=== PATIENT | male | born 1940 | race Caucasian/White ===

== ENCOUNTER 2017-08-22 13:33 | Emergency (ER) | payer MEDICARE, OTHER ==
--- NOTE | 2017-08-22 13:46 | EDM.PDOC ---
ED HPI GENERAL MEDICAL PROBLEM - General Stated Complaint: FALL, HIP PAIN Time Seen by Provider: 08/22/17 13:44 Source of Information: Reports: Patient History Limitations: Reports: No Limitations - History of Present Illness INITIAL COMMENTS - FREE TEXT/NARRATIVE: HISTORY and physical: Patient was standing at the nurses station and fell over now having pain to the left trochanter area and unable to walk History of Present Illness: []Patient did bump his head on the left crown. He is on blood thinners Has full memory of the incident He has a brace on his right lower leg/foot Has a catheter with leg bag on the left Review of Systems: As per history of present illness and below otherwise all systems reviewed and negative. Past medical history: As per history of present illness and as reviewed below otherwise noncontributory. Surgical history: As per history of present illness and as reviewed below otherwise noncontributory. Social history: No reported history of drug or alcohol abuse. Family history: As per history of present illness and as reviewed below otherwise noncontributory. Physical exam: Alert and oriented gentleman answering questions appropriately is able to stand on his good and injured leg. HEENT: Atraumatic, normocehpalic, pupils reactive, negative for conjunctival pallor or scleral icterus, mucous membranes moist, throat clear, neck supple, nontender, trachea midline. Lungs: Clear to auscultation, breath sounds equal bilaterally, chest non tender. Heart: S1S2, regular, negative for clicks, rubs, or JVD. Abdomen: Soft, nondistended, nontender. Negative for masses or hepatossplenmegaly. Negative for costovertebral tenderness. Pelvis: Stable nontender. Genitourinary: Deferred. Rectal: Deferred Extremities: Atraumatic, negative for cords or calf pain. Pain noted to the left trochanter Neurovascular unremarkable. Neuro: Awake, alert, oriented. Cranial nerves II through XII unremarkable. Cerebellum unremarkable. Motor and sensory unremarkable throughout. Exam nonfocal. Discussed with the patient that no fractures were noted on his x-rays Diagnostics: [CT head Left hip and pelvis] Therapeutics: [] Impression: [Contusions ]Plan: [Discharged to home with Tylenol for discomfort up with your primary care provider next week] Definitive disposition and diagnosis as appropriate pending reevaluation and review of above. Onset: Today, Sudden Location: Reports: Lower Extremity, Left Left Hip Pain Score (Numeric/FACES): 5 - Related Data Allergies Allergy/AdvReac Type Severity Reaction Status Date / Time cephalexin monohydrate Allergy Cannot Verified 08/22/17 13:48 [From Keflex] Remember coffee (Coffea arabica) Allergy Cannot Verified 08/22/17 13:48 [coffee] Remember Penicillins Allergy Cannot Verified 08/22/17 13:48 Remember green peppergs Allergy Nausea and Uncoded 08/22/17 13:48 Vomiting tobacco Allergy Nausea Uncoded 08/22/17 13:48 Home Meds: Home Meds Insulin Detemir [Levemir Flexpen] 10 units SQ BEDTIME 11/27/13 [History] Acetaminophen [Tylenol Extra Strength] 500 mg PO Q6H PRN 01/19/16 [History] Glucagon,Human Recombinant [Glucagon Emergency Kit] 1 mg IM ASDIRECTED PRN 01/18 [History] Metoclopramide [Reglan] 10 mg PO TIDMEALS 01/19/16 [History] Aspirin 81 mg PO BRK 01/24/16 [History] Atropine 1% [Isopto Atropine 1% Ophth Soln] 1 drop OP QID 01/24/16 [History] Brimonidine Tartrate [Alphagan P] 1 drop EYEBOTH TID 01/24/16 [History] Clopidogrel [Plavix] 75 mg PO DAILY 01/24/16 [History] Dorzolamide [Trusopt 2% Ophth Soln] 1 drop EYERT TID 01/24/16 [History] Furosemide [Lasix] 80 mg PO BIDD 01/24/16 [History] Insulin Lispro [Humalog Kwikpen U-100] 0 unit SUBCUT TIDMEALS 01/24/16 [History] Isosorbide Mononitrate [Imdur] 30 mg PO DAILY 01/24/16 [History] Latanoprost [Xalatan 0.005% Ophth Soln] 2.5 ml EYERT BEDTIME 01/24/16 [History] Nitroglycerin [Nitrostat] 0.4 mg SL Q5M 01/24/16 [History] Pantoprazole Sodium 40 mg PO DAILY 01/24/16 [History] Polyethylene Glycol 3350 [MiraLAX] 17 gm PO DAILY 01/24/16 [History] Vitamin B Complex 1 each PO DAILY 01/24/16 [History] Warfarin [Coumadin] 2 mg PO BEDTIME 01/24/16 [History] prednisoLONE Acetate [Pred Forte 1% Ophth Susp] 1 drop EYEBOTH TID 01/24/16 [ History] Past Medical History HEENT History: Reports: Macular Degeneration, Retinal Detachment, Other (See Below) Other HEENT History: left vetreous hemorrhage Cardiovascular History: Reports: Bypass, Hypertension, [place] Gastrointestinal History: Reports: GERD, Other (See Below) Other Gastrointestinal History: gastroparesis Genitourinary History: Reports: Pyelonephritis, Renal Disease, Urinary Incontinence Musculoskeletal History: Reports: Back Pain, Chronic, Other (See Below) Other Musculoskeletal History: weakness Endocrine/Metabolic History: Reports: Diabetes, Type I Hematologic History: Reports: Anticoagulation Therapy - Infectious Disease History Infectious Disease History: Reports: Chicken Pox, Measles, Mumps - Past Surgical History Cardiovascular Surgical History: Reports: Other (See Below) Social & Family History - Family History Family Medical History: Noncontributory - Tobacco Use Smoking Status *Q: Never Smoker Second Hand Smoke Exposure: No - Alcohol Use Days Per Week of Alcohol Use: 0 - Recreational Drug Use Recreational Drug Use: No Drug Use in Last 12 Months: No ED ROS GENERAL - Review of Systems Review Of Systems: ROS reveals no pertinent complaints other than HPI. ED EXAM, GENERAL - Physical Exam Exam: See Below (see dictation) Course - Vital Signs Last Recorded V/S: Last Vital Signs Temp 36.7 C 08/22/17 13:45 Pulse 87 08/22/17 13:45 Resp 20 08/22/17 13:45 BP 112/49 L 08/22/17 13:45 Pulse Ox 97 08/22/17 13:45 - Orders/Labs/Meds Orders: Active Orders 24 hr Category Date Time Status Head wo Cont [CT] Stat Exams 08/22/17 13:43 Taken Hip Min 2V or 3V w Pelvis Lt [CR] Stat Exams 08/22/17 13:43 Taken Departure - Departure Time of Disposition: 14:45 Disposition: Home, Self-Care 01 Condition: Good Clinical Impression: Contusion of hip - Discharge Information Instructions: Hip Pain Referrals: Vargas Kaur MD [Primary Care Provider] - Additional Instructions: The following information is given to patients seen in the emergency department who are being discharged to home. This information is to outline your options for follow-up care. We provide all patients seen in our emergency department with a follow-up referral. The need for follow-up, as well as the timing and circumstances, are variable depending upon the specifics of your emergency department visit. If you don't have a primary care physician on staff, we will provide you with a referral. We always advise you to contact your personal physician following an emergency department visit to inform them of the circumstance of the visit and for follow-up with them and/or the need for any referrals to a consulting specialist. The emergency department will also refer you to a specialist when appropriate. This referral assures that you have the opportunity for followup care with a specialist. All of these measure are taken in an effort to provide you with optimal care, which includes your followup. Under all circumstances we always encourage you to contact your private physician who remains a resource for coordinating your care. When calling for followup care, please make the office aware that this follow-up is from your recent emergency room visit. If for any reason you are refused follow-up, please contact the [facility] emergency department at and asked to speak to the emergency department charge nurse. No fractures were noted - My Orders Last 24 Hours: My Active Orders 08/22/17 13:43 Head wo Cont [CT] Stat Hip Min 2V or 3V w Pelvis Lt [CR] Stat - Assessment/Plan Last 24 Hours: My Active Orders 08/22/17 13:43 Head wo Cont [CT] Stat Hip Min 2V or 3V w Pelvis Lt [CR] Stat
[2017-08-22 13:48] VITALS: BP 112/49
--- NOTE | 2017-08-23 19:05 | CT ---
EXAM DATE: 08/22/17 PATIENT'S AGE: 77 Patient: [facility] Facility: [place], [place] Site . Site : 1940 Study: CT Head [id number] 2:02:26 PM Ordering Physician: Doctor Valadez Final Report: HISTORY: Fall, hit head. TECHNIQUE: The head was obtained in the axial plane and 3 mm intervals without IV contrast. Reconstructed bone windows obtained as well as sagittal and coronal reconstructions. FINDINGS: There is mild mucosal thickening in the inferior aspect of the right maxillary sinus. The remainder of the paranasal sinuses and mastoid air cells are well aerated. The calvarium is intact. Calcification is seen within the left vertebral artery and the carotid siphons. The ventricles new sulci are enlarged. Mild periventricular and subcortical white matter hypodensity is present. No intra-axial mass, edema or midline shift is identified. No extra- axial fluid collections are seen. Brady-white differentiation is preserved. IMPRESSION: 1. Atrophy. 2. Mild periventricular and subcortical white matter hypodensity most consistent with small vessel ischemic change. 3. No acute intracranial pathology or bleed. Dictated by Jennifer Mosher MD @ 08/22/2017 2:37:24 PM Dictated by: Jennifer Mosher MD @ 08/22/2017 14:37:29 (Electronic Signature) Report Signed by Proxy. [facility]ITALS[facility]
--- NOTE | 2017-08-23 19:06 | CR ---
EXAM DATE: 08/22/17 PATIENT'S AGE: 77 Patient: [facility] Facility: [place], [place] Site . Site : 1940 Study: XRay Hip Left [id number] 2:10:53 PM Ordering Physician: Doctor Valadez Final Report: HISTORY: Low left hip pain after falling injury. FINDINGS: Three views of the pelvis left hip are provided. Diffuse osteopenia is noted. There are no findings for left hip fracture. There is a previous healed fracture of the right proximal femur internally fixated with a screw and plate combination. No pelvic bone fracture is noted. Mild osteoarthritic change is noted of both hip joints. Dictated by Rogelio Knott MD @ Aug 22 2017 2:31PM (Electronic Signature) Report Signed by Proxy. BRAULIO
== END 2017-08-22 15:10 | disposition home or self-care (01) ==
LOC: MW.ED 13:33
DX: S70.02XA Contusion of left hip, initial encounter (principal); I10 Essential (primary) hypertension; E10.9 Type 1 diabetes mellitus without complications; Z88.1 Allergy status to other antibiotic agents; Z88.0 Allergy status to penicillin; Z79.01 Long term (current) use of anticoagulants; Z79.82 Long term (current) use of aspirin; Z79.4 Long term (current) use of insulin; Z79.899 Other long term (current) drug therapy; W22.8XXA Striking against or struck by other objects, initial encounter
CPT/HCPCS: 70450; 70450-26; 73502-26-LT; 73502-LT; 99284; 99284-25

== ENCOUNTER 2017-12-08 07:10 | Emergency (ER) | payer MEDICARE, OTHER ==
[2017-12-08] MEDS ORDERED: Sodium Chloride 0.9% 2.5 ML Syringe FLUSH PRN (07:35)
[2017-12-08] MEDS ORDERED: Sodium Chloride 0.9% 10 ML Syringe FLUSH PRN (07:35)
[2017-12-08] MEDS ORDERED: Ondansetron 4 MG/2 ML SDV IVPUSH ONE (07:35)
[2017-12-08] MEDS ORDERED: Sodium Chloride 0.9% 1,000 ML IV ONE (07:35)
[2017-12-08] MEDS ORDERED: Metoclopramide 10 MG/2 ML SDV IV ONE (07:37)
--- NOTE | 2017-12-08 07:44 | EDM.PDOC ---
ED HPI GENERAL MEDICAL PROBLEM - General Chief Complaint: Gastrointestinal Problem Stated Complaint: THROWING UP Time Seen by Provider: 12/08/17 07:17 Source of Information: Reports: Patient History Limitations: Reports: No Limitations - History of Present Illness INITIAL COMMENTS - FREE TEXT/NARRATIVE: History of present illness: []Patient's had 2 days of upper abdominal pain with nausea and vomiting. Patient is an insulin-dependent diabetic and also on dialysis. 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 Patient's next dialysis is due this afternoon. Patient denies any chest pain, shortness of breath, cough or recent illnesses. Review of systems: As per history of present illness and below otherwise all systems reviewed and negative. Past medical history: As per history of present illness and as reviewed below otherwise noncontributory. Surgical history: As per history of present illness and as reviewed below otherwise noncontributory. Social history: No reported history of drug or alcohol abuse. Family history: As per history of present illness and as reviewed below otherwise noncontributory. Physical exam: General: Well developed, well nourished in NAD HEENT: Atraumatic, normocephalic, pupils reactive, negative for conjunctival pallor or scleral icterus, mucous membranes moist, throat clear, neck supple, nontender, trachea midline. Lungs: Clear to auscultation, breath sounds equal bilaterally, chest nontender. Heart: S1S2, regular, negative for clicks, rubs, or JVD. Abdomen: Soft, nondistended, diffuse mild tenderness without rebound or guarding with moderate tenderness in the right lower quadrant without rebound or guarding. Negative for masses or hepatosplenomegaly. Negative for costovertebral tenderness. Pelvis: Stable nontender. Genitourinary: Deferred. Patient does have indwelling Garcia catheter with a leg bag Rectal: Guaiac negative Extremities: Atraumatic, negative for cords or calf pain. Neurovascular unremarkable. Neuro: Awake, alert, oriented. Cranial nerves II through XII unremarkable. Cerebellum unremarkable. Motor and sensory unremarkable throughout. Exam nonfocal. Diagnostics: []CBC with white count 13,000 without a shift H&H is 11 and 36, glucose is 450, INR is 1.1, lactate is 2.1. Potassium is 5.4. Therapeutics: []Patient is given maintenance fluids, 10 units of regular insulin and started on a Protonix bolus and drip Impression: []Upper GI bleed, stable, chronic renal disease on dialysis, insulin dependent diabetes with uncontrolled glucose Plan: []Initially [facility] [place] except for this patient, however, patient preferred to be transferred to [facility]. Dr. Hubbard, on the hospitalist service accepts the patient at 8:42 AM. Patient has remained stable while in the ED. Definitive disposition and diagnosis as appropriate pending reevaluation and review of above. abdominal Pain Score (Numeric/FACES): 3 - Related Data Allergies Allergy/AdvReac Type Severity Reaction Status Date / Time cephalexin monohydrate Allergy Cannot Verified 12/08/17 07:23 [From Keflex] Remember coffee (Coffea arabica) Allergy Cannot Verified 12/08/17 07:23 [coffee] Remember Penicillins Allergy Cannot Verified 12/08/17 07:23 Remember green peppergs Allergy Nausea and Uncoded 12/08/17 07:23 Vomiting tobacco Allergy Nausea Uncoded 12/08/17 07:23 Home Meds: Home Meds Insulin Detemir [Levemir Flexpen] 10 units SQ BEDTIME 11/27/13 [History] Acetaminophen [Tylenol Extra Strength] 500 mg PO Q6H PRN 01/19/16 [History] Glucagon,Human Recombinant [Glucagon Emergency Kit] 1 mg IM ASDIRECTED PRN 01/18 [History] Metoclopramide [Reglan] 10 mg PO TIDMEALS 01/19/16 [History] Aspirin 81 mg PO BRK 01/24/16 [History] Atropine 1% [Isopto Atropine 1% Ophth Soln] 1 drop OP QID 01/24/16 [History] Brimonidine Tartrate [Alphagan P] 1 drop EYEBOTH TID 01/24/16 [History] Clopidogrel [Plavix] 75 mg PO DAILY 01/24/16 [History] Dorzolamide [Trusopt 2% Ophth Soln] 1 drop EYERT TID 01/24/16 [History] Furosemide [Lasix] 80 mg PO BIDD 01/24/16 [History] Insulin Lispro [Humalog Kwikpen U-100] 0 unit SUBCUT TIDMEALS 01/24/16 [History] Isosorbide Mononitrate [Imdur] 30 mg PO DAILY 01/24/16 [History] Latanoprost [Xalatan 0.005% Ophth Soln] 2.5 ml EYERT BEDTIME 01/24/16 [History] Nitroglycerin [Nitrostat] 0.4 mg SL Q5M 01/24/16 [History] Pantoprazole Sodium 40 mg PO DAILY 01/24/16 [History] Polyethylene Glycol 3350 [MiraLAX] 17 gm PO DAILY 01/24/16 [History] Vitamin B Complex 1 each PO DAILY 01/24/16 [History] Warfarin [Coumadin] 2 mg PO BEDTIME 01/24/16 [History] prednisoLONE Acetate [Pred Forte 1% Ophth Susp] 1 drop EYEBOTH TID 01/24/16 [ History] Past Medical History HEENT History: Reports: Macular Degeneration, Retinal Detachment, Other (See Below) Other HEENT History: left vetreous hemorrhage Cardiovascular History: Reports: Bypass, Hypertension, [place] Gastrointestinal History: Reports: GERD, Other (See Below) Other Gastrointestinal History: gastroparesis Genitourinary History: Reports: Pyelonephritis, Renal Disease, Urinary Incontinence Musculoskeletal History: Reports: Back Pain, Chronic, Other (See Below) Other Musculoskeletal History: weakness Endocrine/Metabolic History: Reports: Diabetes, Type I Hematologic History: Reports: Anticoagulation Therapy - Infectious Disease History Infectious Disease History: Reports: Chicken Pox, Measles, Mumps - Past Surgical History Cardiovascular Surgical History: Reports: Coronary Artery Bypass Social & Family History - Family History Family Medical History: Noncontributory - Tobacco Use Smoking Status *Q: Never Smoker - Caffeine Use Caffeine Use: Reports: None - Recreational Drug Use Recreational Drug Use: No ED ROS GENERAL - Review of Systems Review Of Systems: See Below (See history of present illness) ED EXAM, GI/ABD - Physical Exam Exam: See Below (See history of present illness) Course - Vital Signs Last Recorded V/S: Last Vital Signs Temp 98.2 F 12/08/17 08:47 Pulse 99 12/08/17 08:47 Resp 20 12/08/17 08:47 BP 131/65 12/08/17 08:47 Pulse Ox 94 L 12/08/17 08:47 - Orders/Labs/Meds Orders: Active Orders 24 hr Category Date Time Status Blood Glucose Check, Bedside [RC] ONETIME Care 12/08/17 07:43 Active EKG 12 Lead [EKG Documentation Completion] [RC] STAT Care 12/08/17 08:41 Active CULTURE URINE [RM] Stat Lab 12/08/17 08:15 Ordered UA W/MICROSCOPIC [URIN] Stat Lab 12/08/17 08:14 Ordered Saline Lock Insert [OM.PC] Stat Oth 12/08/17 07:35 Ordered Labs: Laboratory Tests 12/08/17 12/08/17 12/08/17 Range/Units 07:41 07:41 07:41 WBC 13.72 H (4.0-11.0) K/uL RBC 3.75 L (4.50-5.90) M/uL Hgb 11.5 L (13.0-17.0) g/dL Hct 36.6 L (38.0-50.0) % MCV 97.6 (80.0-98.0) fL MCH 30.7 (27.0-32.0) pg MCHC 31.4 (31.0-37.0) g/dL RDW Std Deviation 47.6 (28.0-62.0) fl RDW Coeff of Jadon 13 (11.0-15.0) % Plt Count 280 (150-400) K/uL MPV 10.40 (7.40-12.00) fL Neut % (Auto) 82.2 H (48.0-80.0) % Lymph % (Auto) 9.7 L (16.0-40.0) % [place] % (Auto) 7.0 (0.0-15.0) % Eos % (Auto) 0.7 (0.0-7.0) % Baso % (Auto) 0.4 (0.0-1.5) % Neut # (Auto) 11.3 H (1.4-5.7) K/uL Lymph # (Auto) 1.3 (0.6-2.4) K/uL [place] # (Auto) 1.0 H (0.0-0.8) K/uL Eos # (Auto) 0.1 (0.0-0.7) K/uL Baso # (Auto) 0.1 (0.0-0.1) K/uL Nucleated RBC % 0.0 /100WBC Nucleated RBCs # 0 K/uL INR Lactate 2.1 H (0.20-2.00) mmol/L Sodium 135 L (136-148) mmol/L Potassium 5.4 H (3.5-5.1) mmol/L Chloride 96 L (98-107) mmol/L Carbon Dioxide 21.0 (21.0-32.0) mmol/L BUN 76 H (7.0-18.0) mg/dL Creatinine 3.8 H (0.8-1.3) mg/dL Est Cr Clr Drug Dosing 18.14 mL/min Estimated GFR (MDRD) 15.6 ml/min Glucose 437 H (74-106) mg/dL POC Glucose (60-110) mg/dL Calcium 9.8 (8.5-10.1) mg/dL Total Bilirubin 0.6 (0.2-1.0) mg/dL AST 48 H (15-37) IU/L ALT 22 (14-63) IU/L Alkaline Phosphatase 88 (46-116) U/L Total Protein 7.1 (6.4-8.2) g/dL Albumin 3.5 (3.4-5.0) g/dL Globulin 3.6 H (2.0-3.5) g/dL Albumin/Globulin Ratio 1.0 L (1.3-2.8) Lipase 112 (73-393) U/L Urine Color Urine Appearance Urine pH (5.0-8.0) Ur Specific [place] (1.001-1.035) Urine Protein (NEGATIVE) mg/dL Urine Glucose (UA) (NEGATIVE) mg/dL Urine Ketones (NEGATIVE) mg/dL Urine Occult Blood (NEGATIVE) Urine Nitrite (NEGATIVE) Urine Bilirubin (NEGATIVE) Urine Urobilinogen (<2.0) EU/dL Ur Leukocyte Esterase (NEGATIVE) Urine RBC (0-2/HPF) Urine WBC (0-5/HPF) Ur Epithelial Cells (NONE-FEW) Amorphous Sediment (NEGATIVE) Urine Bacteria (NEGATIVE) 12/08/17 12/08/17 12/08/17 Range/Units 07:41 07:51 08:14 WBC (4.0-11.0) K/uL RBC (4.50-5.90) M/uL Hgb (13.0-17.0) g/dL Hct (38.0-50.0) % MCV (80.0-98.0) fL MCH (27.0-32.0) pg MCHC (31.0-37.0) g/dL RDW Std Deviation (28.0-62.0) fl RDW Coeff of Jadon (11.0-15.0) % Plt Count (150-400) K/uL MPV (7.40-12.00) fL Neut % (Auto) (48.0-80.0) % Lymph % (Auto) (16.0-40.0) % [place] % (Auto) (0.0-15.0) % Eos % (Auto) (0.0-7.0) % Baso % (Auto) (0.0-1.5) % Neut # (Auto) (1.4-5.7) K/uL Lymph # (Auto) (0.6-2.4) K/uL [place] # (Auto) (0.0-0.8) K/uL Eos # (Auto) (0.0-0.7) K/uL Baso # (Auto) (0.0-0.1) K/uL Nucleated RBC % /100WBC Nucleated RBCs # K/uL INR 1.10 Lactate (0.20-2.00) mmol/L Sodium (136-148) mmol/L Potassium (3.5-5.1) mmol/L Chloride (98-107) mmol/L Carbon Dioxide (21.0-32.0) mmol/L BUN (7.0-18.0) mg/dL Creatinine (0.8-1.3) mg/dL Est Cr Clr Drug Dosing mL/min Estimated GFR (MDRD) ml/min Glucose (74-106) mg/dL POC Glucose 450 H (60-110) mg/dL Calcium (8.5-10.1) mg/dL Total Bilirubin (0.2-1.0) mg/dL AST (15-37) IU/L ALT (14-63) IU/L Alkaline Phosphatase (46-116) U/L Total Protein (6.4-8.2) g/dL Albumin (3.4-5.0) g/dL Globulin (2.0-3.5) g/dL Albumin/Globulin Ratio (1.3-2.8) Lipase (73-393) U/L Urine Color YELLOW Urine Appearance CLEAR Urine pH 5.0 (5.0-8.0) Ur Specific [place] >= 1.030 (1.001-1.035) Urine Protein 30 (NEGATIVE) mg/dL Urine Glucose (UA) >=1000 (NEGATIVE) mg/dL Urine Ketones 15 H (NEGATIVE) mg/dL Urine Occult Blood SMALL H (NEGATIVE) Urine Nitrite NEGATIVE (NEGATIVE) Urine Bilirubin NEGATIVE (NEGATIVE) Urine Urobilinogen 0.2 (<2.0) EU/dL Ur Leukocyte Esterase TRACE (NEGATIVE) Urine RBC 0-1 (0-2/HPF) Urine WBC 3-5 (0-5/HPF) Ur Epithelial Cells FEW (NONE-FEW) Amorphous Sediment LIGHT (NEGATIVE) Urine Bacteria FEW (NEGATIVE) Meds: Medications Discontinued Medications Generic Name Dose Route Start Last Admin Trade Name Freq PRN Reason Stop Dose Admin Sodium Chloride 500 mls @ 999 mls/hr 12/08/17 07:45 12/08/17 07:51 Normal Saline IV 12/08/17 08:15 Not Given .Bolus ONE Pantoprazole Sodium 80 mg/ 100 mls @ 10 mls/hr 12/08/17 08:00 Sodium Chloride IV .Continuous DEBORAH Sodium Chloride 500 mls @ 250 mls/hr 12/08/17 08:00 12/08/17 07:51 Normal Saline IV 250 mls/hr .BOLUS DEBORAH Administration Pantoprazole Sodium 80 mg/ 100 mls @ 10 mls/hr 12/08/17 08:00 12/08/17 08:10 Sodium Chloride IV 10 mls/hr Q10H DEBORAH Administration Insulin Human Regular 10 unit 12/08/17 07:52 12/08/17 08:09 Novolin R IVPUSH 12/08/17 07:53 10 unit ONETIME ONE Administration Protocol Metoclopramide HCl 10 mg 12/08/17 07:37 12/08/17 07:50 Reglan IV 12/08/17 07:38 10 mg ONETIME ONE Administration Metoclopramide HCl Confirm 12/08/17 09:20 Reglan Administered 12/08/17 09:21 Dose 10 mg .ROUTE .STK-MED ONE Pantoprazole Sodium 80 mg 12/08/17 07:47 12/08/17 08:10 Protonix Iv IVPUSH 12/08/17 07:48 80 mg .BOLUS ONE Administration Sodium Chloride 10 ml 12/08/17 07:35 12/08/17 07:52 Saline Flush FLUSH 10 ml ASDIRECTED PRN Administration Keep Vein Open Sodium Chloride 2.5 ml 12/08/17 07:35 Saline Flush FLUSH ASDIRECTED PRN Keep Vein Open Departure - Departure Time of Disposition: 10:21 Disposition: DC/Tfer to Acute Hospital 02 Condition: Fair Clinical Impression: Upper GI bleed, End stage renal disease on dialysis, Insulin dependent diabetes mellitus - Discharge Information Referrals: Vargas Kaur MD [Primary Care Provider] - Forms: ED Department Discharge - My Orders Last 24 Hours: My Active Orders 12/08/17 07:35 Saline Lock Insert [OM.PC] Stat 12/08/17 07:43 Blood Glucose Check, Bedside [RC] ONETIME 12/08/17 08:14 UA W/MICROSCOPIC [URIN] Stat 12/08/17 08:15 CULTURE URINE [RM] Stat 12/08/17 08:41 EKG 12 Lead [EKG Documentation Completion] [RC] STAT - Assessment/Plan Last 24 Hours: My Active Orders 12/08/17 07:35 Saline Lock Insert [OM.PC] Stat 12/08/17 07:43 Blood Glucose Check, Bedside [RC] ONETIME 12/08/17 08:14 UA W/MICROSCOPIC [URIN] Stat 12/08/17 08:15 CULTURE URINE [RM] Stat 12/08/17 08:41 EKG 12 Lead [EKG Documentation Completion] [RC] STAT
[2017-12-08] MEDS ORDERED: Sodium Chloride 0.9% 500 ML IV ONE (07:45)
[2017-12-08] MEDS ORDERED: Pantoprazole 40 MG Vial IVPUSH ONE (07:47)
[2017-12-08] MEDS ORDERED: Insulin Regular, Human 100 Units/ML 10 ML Vial IVPUSH ONE (07:52)
[2017-12-08] MEDS ORDERED: Sodium Chloride 0.9% 500 ML IV SCH (08:00)
[2017-12-08] MEDS ORDERED: Pantoprazole 80 MG in Sodium Chloride 0.9% 100 ML IV SCH ×4 (08:00)
[2017-12-08 08:48] VITALS: BP 131/65
--- NOTE | 2017-12-08 09:13 | CR ---
EXAMINATION: Portable chest radiograph. HISTORY: Shortness of breath. FINDINGS: The trachea is midline. The cardiomediastinal silhouette is within normal limits. No pulmonary infilt rates, effusions or pneumothorax. Median sternotomy wires are noted. Osseous structures appear unremarkable. IMPRESSION: No acute cardiopulmonary process.
[2017-12-08] MEDS ORDERED: Metoclopramide 10 MG/2 ML SDV ONE (09:20)
== END 2017-12-08 09:20 ==
LOC: MW.ED 07:10
DX: K92.2 Gastrointestinal hemorrhage, unspecified (principal); I12.0 Hypertensive chronic kidney disease with stage 5 chronic kidney disease or end stage renal disease; E10.22 Type 1 diabetes mellitus with diabetic chronic kidney disease; N18.6 End stage renal disease; Z99.2 Dependence on renal dialysis; Z79.4 Long term (current) use of insulin; I25.2 Old myocardial infarction; Z88.0 Allergy status to penicillin; Z91.018 Allergy to other foods; Z88.1 Allergy status to other antibiotic agents; Z79.82 Long term (current) use of aspirin; Z79.899 Other long term (current) drug therapy; K21.9 Gastro-esophageal reflux disease without esophagitis
CPT/HCPCS: 36415; 71045; 80053; 81001; 82962; 83605; 83690; 85025; 85610; 87086; 93005; 96361; 96365; 96375; 96376; 99285; C9113; J1815; J2765; J7030; J7040

== ENCOUNTER 2017-12-11 11:01 | Emergency (ER) | payer MEDICARE, OTHER ==
[2017-12-11] MEDS ORDERED: Sodium Chloride 0.9% 10 ML Syringe FLUSH PRN (11:10)
[2017-12-11] MEDS ORDERED: Sodium Chloride 0.9% 2.5 ML Syringe FLUSH PRN (11:10)
[2017-12-11] MEDS ORDERED: Sodium Chloride 0.9% 1,000 ML IV ONE (11:10)
[2017-12-11] MEDS ORDERED: Insulin Regular, Human 100 Units/ML 10 ML Vial IVPUSH ONE ×2 (11:11→12:18)
--- NOTE | 2017-12-11 11:12 | EDM.PDOC ---
ED HPI GENERAL MEDICAL PROBLEM - General Stated Complaint: HIGH BS Time Seen by Provider: 12/11/17 11:03 Source of Information: Reports: Patient History Limitations: Reports: No Limitations - History of Present Illness INITIAL COMMENTS - FREE TEXT/NARRATIVE: History of present illness: []Patient woke this morning glucose greater than 500 and took extra insulin and has not been able to lower his glucose. His only complaint is he feels tired. Review of systems: As per history of present illness and below otherwise all systems reviewed and negative. Past medical history: As per history of present illness and as reviewed below otherwise noncontributory. Surgical history: As per history of present illness and as reviewed below otherwise noncontributory. Social history: No reported history of drug or alcohol abuse. Family history: As per history of present illness and as reviewed below otherwise noncontributory. Physical exam: General: Well developed, well nourished in NAD HEENT: Atraumatic, normocephalic, pupils reactive, negative for conjunctival pallor or scleral icterus, mucous membranes moist, throat clear, neck supple, nontender, trachea midline. Lungs: Clear to auscultation, breath sounds equal bilaterally, chest nontender. Heart: S1S2, regular, negative for clicks, rubs, or JVD. Abdomen: Soft, nondistended, nontender. Negative for masses or hepatosplenomegaly. Negative for costovertebral tenderness. Pelvis: Stable nontender. Genitourinary: Deferred. Rectal: Deferred. Extremities: Atraumatic, negative for cords or calf pain. Neurovascular unremarkable. Neuro: Awake, alert, oriented. Cranial nerves II through XII unremarkable. Cerebellum unremarkable. Motor and sensory unremarkable throughout. Exam nonfocal. Diagnostics: []CBC Normal chemistry shows sodium 133, BUN/creatinine is 58 and 4.1, urine shows 8-10 WBCs and positive leuk esterase Therapeutics: []Bactrim Impression: []UTI, diabetes Plan: []UTI, Bactrim as directed, use sliding scale to control glucoses follow-up with primary care this week Definitive disposition and diagnosis as appropriate pending reevaluation and review of above. Back Pain Score (Numeric/FACES): 3 - Related Data Allergies Allergy/AdvReac Type Severity Reaction Status Date / Time cephalexin monohydrate Allergy Cannot Verified 12/11/17 11:18 [From Keflex] Remember coffee (Coffea arabica) Allergy Cannot Verified 12/11/17 11:18 [coffee] Remember Penicillins Allergy Cannot Verified 12/11/17 11:18 Remember green peppergs Allergy Nausea and Uncoded 12/08/17 07:23 Vomiting tobacco Allergy Nausea Uncoded 12/08/17 07:23 Home Meds: Home Meds Insulin Detemir [Levemir Flexpen] 10 units SQ BEDTIME 11/27/13 [History] Acetaminophen [Tylenol Extra Strength] 500 mg PO Q6H PRN 01/19/16 [History] Glucagon,Human Recombinant [Glucagon Emergency Kit] 1 mg IM ASDIRECTED PRN 01/18 [History] Metoclopramide [Reglan] 10 mg PO TIDMEALS 01/19/16 [History] Aspirin 81 mg PO BRK 01/24/16 [History] Atropine 1% [Isopto Atropine 1% Oph Soln] 1 drop OP QID 01/24/16 [History] Brimonidine Tartrate [Alphagan P] 1 drop EYEBOTH TID 01/24/16 [History] Clopidogrel [Plavix] 75 mg PO DAILY 01/24/16 [History] Dorzolamide [Trusopt 2% Oph Soln] 1 drop EYERT TID 01/24/16 [History] Furosemide [Lasix] 80 mg PO BIDD 01/24/16 [History] Insulin Lispro [Humalog Kwikpen U-100] 0 unit SUBCUT TIDMEALS 01/24/16 [History] Isosorbide Mononitrate [Imdur] 30 mg PO DAILY 01/24/16 [History] Latanoprost [Xalatan 0.005% Oph Soln] 2.5 ml EYERT BEDTIME 01/24/16 [History] Nitroglycerin [Nitrostat] 0.4 mg SL Q5M 01/24/16 [History] Pantoprazole Sodium 40 mg PO DAILY 01/24/16 [History] Polyethylene Glycol 3350 [MiraLAX] 17 gm PO DAILY 01/24/16 [History] Vitamin B Complex 1 each PO DAILY 01/24/16 [History] Warfarin [Coumadin] 2 mg PO BEDTIME 01/24/16 [History] prednisoLONE Acetate [Pred Forte 1% Oph Susp] 1 drop EYEBOTH TID 01/24/16 [ History] Sulfamethoxazole/Trimethoprim [Bactrim Ds Tablet] 1 each PO BID #20 tablet 12/11 [Rx] Past Medical History HEENT History: Reports: Macular Degeneration, Retinal Detachment, Other (See Below) Other HEENT History: left vetreous hemorrhage Cardiovascular History: Reports: Bypass, Hypertension, [place] Gastrointestinal History: Reports: GERD, Other (See Below) Other Gastrointestinal History: gastroparesis Genitourinary History: Reports: Pyelonephritis, Renal Disease, Urinary Incontinence Musculoskeletal History: Reports: Back Pain, Chronic, Other (See Below) Other Musculoskeletal History: weakness Endocrine/Metabolic History: Reports: Diabetes, Type I Hematologic History: Reports: Anticoagulation Therapy - Infectious Disease History Infectious Disease History: Reports: Chicken Pox, Measles, Mumps - Past Surgical History Cardiovascular Surgical History: Reports: Coronary Artery Bypass Social & Family History - Family History Family Medical History: Noncontributory - Caffeine Use Caffeine Use: Reports: None ED ROS GENERAL - Review of Systems Review Of Systems: See Below (See history of present illness) ED EXAM, GENERAL - Physical Exam Exam: See Below (See history of present illness) Course - Vital Signs Last Recorded V/S: Last Vital Signs Temp 97.6 F 12/11/17 11:12 Pulse 76 12/11/17 13:37 Resp 16 12/11/17 13:37 BP 103/57 L 12/11/17 13:37 Pulse Ox 94 L 12/11/17 13:37 - Orders/Labs/Meds Orders: Active Orders 24 hr Category Date Time Status Chest 1V Frontal [CR] Stat Exams 12/11/17 11:14 Taken UA W/MICROSCOPIC [URIN] Stat Lab 12/11/17 12:00 Ordered Sodium Chloride 0.9% [Saline Flush] Med 12/11/17 11:10 Active 10 ml FLUSH ASDIRECTED PRN Sodium Chloride 0.9% [Saline Flush] Med 12/11/17 11:10 Active 2.5 ml FLUSH ASDIRECTED PRN Saline Lock Insert [OM.PC] Stat Oth 12/11/17 11:10 Ordered Medication Orders Sodium Chloride (Saline Flush) 10 ml FLUSH ASDIRECTED PRN PRN Reason: Keep Vein Open Last Admin: 12/11/17 11:40 Dose: 10 ml Sodium Chloride (Saline Flush) 2.5 ml FLUSH ASDIRECTED PRN PRN Reason: Keep Vein Open Last Admin: 12/11/17 11:40 Dose: 2.5 ml Labs: Laboratory Tests 12/11/17 12/11/17 12/11/17 Range/Units 11:35 11:35 12:00 WBC 9.90 (4.0-11.0) K/uL RBC 3.43 L (4.50-5.90) M/uL Hgb 10.5 L (13.0-17.0) g/dL Hct 33.1 L (38.0-50.0) % MCV 96.5 (80.0-98.0) fL MCH 30.6 (27.0-32.0) pg MCHC 31.7 (31.0-37.0) g/dL RDW Std Deviation 45.4 (28.0-62.0) fl RDW Coeff of Jadon 13 (11.0-15.0) % Plt Count 205 (150-400) K/uL MPV 10.20 (7.40-12.00) fL Neut % (Auto) 75.2 (48.0-80.0) % Lymph % (Auto) 11.6 L (16.0-40.0) % Glenn % (Auto) 11.2 (0.0-15.0) % Eos % (Auto) 1.7 (0.0-7.0) % Baso % (Auto) 0.3 (0.0-1.5) % Neut # (Auto) 7.4 H (1.4-5.7) K/uL Lymph # (Auto) 1.2 (0.6-2.4) K/uL Glenn # (Auto) 1.1 H (0.0-0.8) K/uL Eos # (Auto) 0.2 (0.0-0.7) K/uL Baso # (Auto) 0.0 (0.0-0.1) K/uL Nucleated RBC % 0.0 /100WBC Nucleated RBCs # 0 K/uL Sodium 133 L (136-148) mmol/L Potassium 3.9 (3.5-5.1) mmol/L Chloride 97 L (98-107) mmol/L Carbon Dioxide 30.8 (21.0-32.0) mmol/L BUN 58 H (7.0-18.0) mg/dL Creatinine 4.1 H (0.8-1.3) mg/dL Est Cr Clr Drug Dosing 15.58 mL/min Estimated GFR (MDRD) 14.3 ml/min Glucose 477 H (74-106) mg/dL POC Glucose (60-110) mg/dL Calcium 9.0 (8.5-10.1) mg/dL Total Bilirubin 0.3 (0.2-1.0) mg/dL AST 21 (15-37) IU/L ALT 19 (14-63) IU/L Alkaline Phosphatase 85 (46-116) U/L Total Protein 6.6 (6.4-8.2) g/dL Albumin 3.2 L (3.4-5.0) g/dL Globulin 3.4 (2.0-3.5) g/dL Albumin/Globulin Ratio 0.9 L (1.3-2.8) Urine Color YELLOW Urine Appearance CLEAR Urine pH 5.0 (5.0-8.0) Ur Specific Armstrong 1.025 (1.001-1.035) Urine Protein TRACE (NEGATIVE) mg/dL Urine Glucose (UA) >=1000 (NEGATIVE) mg/dL Urine Ketones NEGATIVE (NEGATIVE) mg/dL Urine Occult Blood TRACE-INTACT (NEGATIVE) Urine Nitrite NEGATIVE (NEGATIVE) Urine Bilirubin SMALL H (NEGATIVE) Urine Ictotest NEGATIVE Urine Urobilinogen 0.2 (<2.0) EU/dL Ur Leukocyte Esterase SMALL (NEGATIVE) Urine RBC 0-2 (0-2/HPF) Urine WBC 8-10 (0-5/HPF) Ur Epithelial Cells FEW (NONE-FEW) Urine Bacteria FEW (NEGATIVE) 12/11/17 12/11/17 12/11/17 Range/Units 12:06 12:46 13:37 WBC (4.0-11.0) K/uL RBC (4.50-5.90) M/uL Hgb (13.0-17.0) g/dL Hct (38.0-50.0) % MCV (80.0-98.0) fL MCH (27.0-32.0) pg MCHC (31.0-37.0) g/dL RDW Std Deviation (28.0-62.0) fl RDW Coeff of Jadon (11.0-15.0) % Plt Count (150-400) K/uL MPV (7.40-12.00) fL Neut % (Auto) (48.0-80.0) % Lymph % (Auto) (16.0-40.0) % Glenn % (Auto) (0.0-15.0) % Eos % (Auto) (0.0-7.0) % Baso % (Auto) (0.0-1.5) % Neut # (Auto) (1.4-5.7) K/uL Lymph # (Auto) (0.6-2.4) K/uL Glenn # (Auto) (0.0-0.8) K/uL Eos # (Auto) (0.0-0.7) K/uL Baso # (Auto) (0.0-0.1) K/uL Nucleated RBC % /100WBC Nucleated RBCs # K/uL Sodium (136-148) mmol/L Potassium (3.5-5.1) mmol/L Chloride (98-107) mmol/L Carbon Dioxide (21.0-32.0) mmol/L BUN (7.0-18.0) mg/dL Creatinine (0.8-1.3) mg/dL Est Cr Clr Drug Dosing mL/min Estimated GFR (MDRD) ml/min Glucose (74-106) mg/dL POC Glucose 404 H 293 H 209 H (60-110) mg/dL Calcium (8.5-10.1) mg/dL Total Bilirubin (0.2-1.0) mg/dL AST (15-37) IU/L ALT (14-63) IU/L Alkaline Phosphatase (46-116) U/L Total Protein (6.4-8.2) g/dL Albumin (3.4-5.0) g/dL Globulin (2.0-3.5) g/dL Albumin/Globulin Ratio (1.3-2.8) Urine Color Urine Appearance Urine pH (5.0-8.0) Ur Specific Armstrong (1.001-1.035) Urine Protein (NEGATIVE) mg/dL Urine Glucose (UA) (NEGATIVE) mg/dL Urine Ketones (NEGATIVE) mg/dL Urine Occult Blood (NEGATIVE) Urine Nitrite (NEGATIVE) Urine Bilirubin (NEGATIVE) Urine Ictotest Urine Urobilinogen (<2.0) EU/dL Ur Leukocyte Esterase (NEGATIVE) Urine RBC (0-2/HPF) Urine WBC (0-5/HPF) Ur Epithelial Cells (NONE-FEW) Urine Bacteria (NEGATIVE) Meds: Medications Generic Name Dose Route Start Last Admin Trade Name Neno PRN Reason Stop Dose Admin Sodium Chloride 10 ml 12/11/17 11:10 12/11/17 11:40 Saline Flush FLUSH 10 ml ASDIRECTED PRN Administration Keep Vein Open Sodium Chloride 2.5 ml 12/11/17 11:10 12/11/17 11:40 Saline Flush FLUSH 2.5 ml ASDIRECTED PRN Administration Keep Vein Open Discontinued Medications Generic Name Dose Route Start Last Admin Trade Name Neno PRN Reason Stop Dose Admin Sodium Chloride 1,000 mls @ 999 mls/hr 12/11/17 11:10 12/11/17 11:41 Normal Saline IV 12/11/17 12:10 Not Given .Bolus ONE Sodium Chloride 500 mls @ 999 mls/hr 12/11/17 11:13 12/11/17 11:40 Normal Saline IV 12/11/17 11:40 999 mls/hr .Bolus ONE Administration Insulin Human Regular 10 unit 12/11/17 11:11 12/11/17 11:39 Novolin R IVPUSH 12/11/17 11:12 10 units ONETIME ONE Administration Protocol Insulin Human Regular 10 unit 12/11/17 12:18 12/11/17 12:25 Novolin R IVPUSH 12/11/17 12:19 10 units ONETIME ONE Administration Protocol Trimethoprim/Sulfamethoxazole 1 tab 12/11/17 13:36 12/11/17 13:55 Septra Ds PO 12/11/17 13:37 1 tab ONETIME ONE Administration Departure - Departure Time of Disposition: 13:30 Disposition: Home, Self-Care 01 Condition: Good Clinical Impression: Uncontrolled diabetes mellitus Qualifiers: Diabetes mellitus type: type 1 Diabetes mellitus complication status: with unspecified complications Qualified Code(s): E10.8 - Type 1 diabetes mellitus with unspecified complications UTI (urinary tract infection) Qualifiers: Urinary tract infection type: site unspecified Hematuria presence: without hematuria Qualified Code(s): N39.0 - Urinary tract infection, site not specified - Discharge Information Prescriptions: Sulfamethoxazole/Trimethoprim [Bactrim Ds Tablet] 1 each PO BID #20 tablet Instructions: Urinary Tract Infection, Adult, [id number], Type 2 Diabetes Mellitus, Self Care, Adult, [id number] Referrals: Erasmo Billings MD [Primary Care Provider] - Forms: ED Department Discharge Additional Instructions: The following information is given to patients seen in the emergency department who are being discharged to home. This information is to outline your options for follow-up care. We provide all patients seen in our emergency department with a follow-up referral. The need for follow-up, as well as the timing and circumstances, are variable depending upon the specifics of your emergency department visit. If you don't have a primary care physician on staff, we will provide you with a referral. We always advise you to contact your personal physician following an emergency department visit to inform them of the circumstance of the visit and for follow-up with them and/or the need for any referrals to a consulting specialist. The emergency department will also refer you to a specialist when appropriate. This referral assures that you have the opportunity for follow-up care with a specialist. All of these measure are taken in an effort to provide you with optimal care, which includes your follow-up. Under all circumstances we always encourage you to contact your private physician who remains a resource for coordinating your care. When calling for follow-up care, please make the office aware that this follow-up is from your recent emergency room visit. If for any reason you are refused follow-up, please contact the [facility] Emergency Department at and asked to speak to the emergency department charge nurse. Take Bactrim as directed. Use sliding scale to dose insulin as appropriate to keep her sugars down. Have your INR checked next week as antibiotic can alter levels. Follow up with your primary care doctor this week and return to ER if symptoms worsen or change. - My Orders Last 24 Hours: My Active Orders 12/11/17 11:10 Sodium Chloride 0.9% [Saline Flush] 10 ml FLUSH ASDIRECTED PRN Sodium Chloride 0.9% [Saline Flush] 2.5 ml FLUSH ASDIRECTED PRN Saline Lock Insert [OM.PC] Stat 12/11/17 11:14 Chest 1V Frontal [CR] Stat 12/11/17 12:00 UA W/MICROSCOPIC [URIN] Stat - Assessment/Plan Last 24 Hours: My Active Orders 12/11/17 11:10 Sodium Chloride 0.9% [Saline Flush] 10 ml FLUSH ASDIRECTED PRN Sodium Chloride 0.9% [Saline Flush] 2.5 ml FLUSH ASDIRECTED PRN Saline Lock Insert [OM.PC] Stat 12/11/17 11:14 Chest 1V Frontal [CR] Stat 12/11/17 12:00 UA W/MICROSCOPIC [URIN] Stat
[2017-12-11] MEDS ORDERED: Sodium Chloride 0.9% 500 ML IV ONE (11:13)
[2017-12-11] MEDS ORDERED: Sulfamethoxazole/Trimethoprim 800-160 MG Tab PO ONE (13:36)
[2017-12-11 14:49] VITALS: BP 100/59
--- NOTE | 2017-12-13 18:50 | CR ---
Report Signed by Proxy.EXAM DATE: 12/11/17 PATIENT'S AGE: 77 Patient: WM MTZ Facility: [facility] [place], [place], [place] Site . Site : [id number] Study: XRay Chest [id number]/12/2018 11:24:49 AM Ordering Physician: Steven Marcano Final Report: INDICATION: Chest pain, dyspnea TECHNIQUE: Chest 1 view. COMPARISON: 12/08/2017. FINDINGS: The heart size remains stable and in the upper range of normal allowing for AP portable semi erect technique. Central vascular markings remain within the normal range. The lungs are clear of acute appearing infiltrates. No significant pleural effusion is evident. Changes of previous midline sternotomy and suspected coronary artery bypass grafting are present. Paraspinal rods extending from the lower thoracic and lumbar spine are partially visualized. IMPRESSION: Stable radiographic findings without acute cardiopulmonary disease evident as detailed above. Dictated by Campos Hammonds MD @ 12/11/2017 11:40:40 AM Dictated by: Campos Hammonds MD @ 12/11/2017 11:40:47 (Electronic Signature) [email or web address]
== END 2017-12-11 14:22 | disposition home or self-care (01) ==
LOC: MW.ED 11:01
DX: E10.65 Type 1 diabetes mellitus with hyperglycemia (principal); N39.0 Urinary tract infection, site not specified; I10 Essential (primary) hypertension; I25.2 Old myocardial infarction; I25.810 Atherosclerosis of coronary artery bypass graft(s) without angina pectoris; Z88.1 Allergy status to other antibiotic agents; Z88.0 Allergy status to penicillin; Z91.018 Allergy to other foods; Z79.899 Other long term (current) drug therapy; Z79.82 Long term (current) use of aspirin; Z79.01 Long term (current) use of anticoagulants
CPT/HCPCS: 36415; 71045; 80053; 81001; 82962; 85025; 96361; 96374; 96376; 99285; A9270; J7040; J1815-GY

== ENCOUNTER 2017-12-27 18:27 | Emergency (ER) | payer MEDICARE, OTHER ==
--- NOTE | 2017-12-27 19:10 | EDM.PDOC ---
ED HPI GENERAL MEDICAL PROBLEM - General Chief Complaint: Diabetic Complaint Stated Complaint: LETHARGY Time Seen by Provider: 12/27/17 18:50 Source of Information: Reports: Patient History Limitations: Reports: No Limitations - History of Present Illness INITIAL COMMENTS - FREE TEXT/NARRATIVE: HISTORY AND PHYSICAL: History of present illness: 77-year-old [facility] [place] patient male brought in by [facility] for chief complaint of confusion and low blood sugar. As per [facility] [place] and nursing staff. Patient was acting confused and somewhat lethargic. At that time they took his blood sugar which was 50. They gave him some juice which increased his blood sugar to 120s. Secondary to the above that brought him into the emergency room for further evaluation. In the emergency room recheck of his blood sugar was 163. Patient was alert and oriented 3. In examining the patient he currently denies any significant symptoms and has been feeling well up until today. He denies any chest pain, shortness of breath, cough, dysuria, hematuria, abdominal pain, bloody stool, or dark tarry stools. He is not having any leg pain and denies any syncopal episodes or focal neurologic deficits. 2039- CBC unremarkable, patient afebrile with no pain, a &o x3, CMP shows CR 2.8 which is improved from two previous visits 12/11/17-4.1 and 12/08/17-3.8. Most likely his baseline 2145- UA positive for acute cystitis. Review of systems: As per history of present illness and below otherwise all systems reviewed and negative. Past medical history: As per history of present illness and as reviewed below otherwise noncontributory. Surgical history: As per history of present illness and as reviewed below otherwise noncontributory. Social history: No reported history of drug or alcohol abuse. Family history: As per history of present illness and as reviewed below otherwise noncontributory. Physical exam: HEENT: Atraumatic, normocephalic, pupils reactive, negative for conjunctival pallor or scleral icterus, mucous membranes moist, throat clear, neck supple, nontender, trachea midline. Lungs: Clear to auscultation, breath sounds equal bilaterally, chest nontender. Heart: S1S2, regular, negative for clicks, rubs, or JVD. Abdomen: Soft, nondistended, nontender. Negative for masses or hepatosplenomegaly. Negative for costovertebral tenderness. Pelvis: Stable nontender. Genitourinary: Deferred. Rectal: Deferred. Extremities: Atraumatic, negative for cords or calf pain. Neurovascular unremarkable. Neuro: Awake, alert, oriented. Cranial nerves II through XII unremarkable. Cerebellum unremarkable. Motor and sensory unremarkable throughout. Exam nonfocal. Diagnostics: CBC, CMP, UA/UC Therapeutics: Cipro Impression: Altered mental status-resolved Hypoglycemia-resolve Acute cystitis Plan: Patient's was alert and oriented on arrival to the emergency department. Glucose levels were 163 year in emergency department. On further examination patient was found to be positive for an acute urinary tract infection. This was communicated to the patient. Most likely his altered mental status and hypoglycemia may have been related to this acute cystitis. Patient was discharged in good condition back to [place] with a prescription for Cipro and instructed to follow-up with primary care physician and return department if there are any new or worsening symptoms. - Related Data Allergies Allergy/AdvReac Type Severity Reaction Status Date / Time cephalexin monohydrate Allergy Cannot Verified 12/27/17 20:16 [From Keflex] Remember coffee (Coffea arabica) Allergy Cannot Verified 12/27/17 20:16 [coffee] Remember Penicillins Allergy Cannot Verified 12/27/17 20:16 Remember green peppergs Allergy Nausea and Uncoded 12/27/17 20:16 Vomiting tobacco Allergy Nausea Uncoded 12/27/17 20:16 Home Meds: Home Meds Insulin Detemir [Levemir Flexpen] 10 units SQ BEDTIME 11/27/13 [History] Acetaminophen [Tylenol Extra Strength] 500 mg PO Q6H PRN 01/19/16 [History] Glucagon,Human Recombinant [Glucagon Emergency Kit] 1 mg IM ASDIRECTED PRN 01/18 [History] Metoclopramide [Reglan] 10 mg PO TIDMEALS 01/19/16 [History] Aspirin 81 mg PO BRK 01/24/16 [History] Atropine 1% [Isopto Atropine 1% Ophth Soln] 1 drop OP QID 01/24/16 [History] Brimonidine Tartrate [Alphagan P] 1 drop EYEBOTH TID 01/24/16 [History] Clopidogrel [Plavix] 75 mg PO DAILY 01/24/16 [History] Dorzolamide [Trusopt 2% Ophth Soln] 1 drop EYERT TID 01/24/16 [History] Furosemide [Lasix] 80 mg PO BIDD 01/24/16 [History] Insulin Lispro [Humalog Kwikpen U-100] 0 unit SUBCUT ASDIRECTED PRN 01/24/16 [ History] Isosorbide Mononitrate [Imdur] 30 mg PO DAILY 01/24/16 [History] Latanoprost [Xalatan 0.005% Ophth Soln] 2.5 ml EYERT BEDTIME 01/24/16 [History] Nitroglycerin [Nitrostat] 0.4 mg SL Q5M 01/24/16 [History] Pantoprazole Sodium 20 mg PO DAILY 01/24/16 [History] Polyethylene Glycol 3350 [MiraLAX] 17 gm PO DAILY 01/24/16 [History] Vitamin B Complex 1 each PO DAILY 01/24/16 [History] Warfarin [Coumadin] 2 mg PO BEDTIME 01/24/16 [History] prednisoLONE Acetate [Pred Forte 1% Ophth Susp] 1 drop EYEBOTH TID 01/24/16 [ History] Sulfamethoxazole/Trimethoprim [Bactrim Ds Tablet] 1 each PO BID #20 tablet 12/11 [Rx] Bisacodyl [Biscolax] 10 mg RC ASDIRECTED PRN 12/27/17 [History] Pravastatin [Pravachol] 40 mg PO DAILY 12/27/17 [History] Past Medical History HEENT History: Reports: Macular Degeneration, Retinal Detachment, Other (See Below) Other HEENT History: left vetreous hemorrhage Cardiovascular History: Reports: Bypass, Hypertension, [place] Gastrointestinal History: Reports: GERD, Other (See Below) Other Gastrointestinal History: gastroparesis Genitourinary History: Reports: Pyelonephritis, Renal Disease, Urinary Incontinence Other Genitourinary History: renal dialysis Musculoskeletal History: Reports: Back Pain, Chronic, Other (See Below) Other Musculoskeletal History: weakness Endocrine/Metabolic History: Reports: Diabetes, Type I Hematologic History: Reports: Anticoagulation Therapy - Infectious Disease History Infectious Disease History: Reports: Chicken Pox, Measles, Mumps - Past Surgical History Cardiovascular Surgical History: Reports: Coronary Artery Bypass Social & Family History - Family History Family Medical History: Noncontributory - Caffeine Use Caffeine Use: Reports: None ED ROS GENERAL - Review of Systems Review Of Systems: See Below ED EXAM GENERAL NO PERIP PULSE - Physical Exam Exam: See Below Course - Vital Signs Last Recorded V/S: Last Vital Signs Temp 97 F 12/27/17 19:00 Pulse 87 12/27/17 20:41 Resp 16 12/27/17 20:41 BP 103/49 L 12/27/17 20:41 Pulse Ox 95 12/27/17 20:41 - Orders/Labs/Meds Orders: Active Orders 24 hr Category Date Time Status CXR [Chest 1V Frontal] [CR] Stat Exams 12/27/17 19:04 Taken CULTURE URINE [RM] Stat Lab 12/27/17 21:00 Received UA W/MICROSCOPIC [URIN] Stat Lab 12/27/17 21:00 Ordered Labs: Laboratory Tests 12/27/17 12/27/17 12/27/17 Range/Units 19:45 19:45 21:00 WBC 11.81 H (4.0-11.0) K/uL RBC 3.40 L (4.50-5.90) M/uL Hgb 10.6 L (13.0-17.0) g/dL Hct 33.0 L (38.0-50.0) % MCV 97.1 (80.0-98.0) fL MCH 31.2 (27.0-32.0) pg MCHC 32.1 (31.0-37.0) g/dL RDW Std Deviation 49.0 (28.0-62.0) fl RDW Coeff of Jadon 14 (11.0-15.0) % Plt Count 226 (150-400) K/uL MPV 10.10 (7.40-12.00) fL Neut % (Auto) 83.5 H (48.0-80.0) % Lymph % (Auto) 6.6 L (16.0-40.0) % [place] % (Auto) 9.0 (0.0-15.0) % Eos % (Auto) 0.4 (0.0-7.0) % Baso % (Auto) 0.5 (0.0-1.5) % Neut # (Auto) 9.9 H (1.4-5.7) K/uL Lymph # (Auto) 0.8 (0.6-2.4) K/uL [place] # (Auto) 1.1 H (0.0-0.8) K/uL Eos # (Auto) 0.1 (0.0-0.7) K/uL Baso # (Auto) 0.1 (0.0-0.1) K/uL Nucleated RBC % 0.0 /100WBC Nucleated RBCs # 0 K/uL Sodium 137 (136-148) mmol/L Potassium 3.6 (3.5-5.1) mmol/L Chloride 97 L (98-107) mmol/L Carbon Dioxide 28.7 (21.0-32.0) mmol/L BUN 30 H (7.0-18.0) mg/dL Creatinine 2.8 H (0.8-1.3) mg/dL Est Cr Clr Drug Dosing TNP Estimated GFR (MDRD) 22.1 ml/min Glucose 153 H (74-106) mg/dL Calcium 8.6 (8.5-10.1) mg/dL Total Bilirubin 0.4 (0.2-1.0) mg/dL AST 112 H (15-37) IU/L ALT 132 H (14-63) IU/L Alkaline Phosphatase 226 H (46-116) U/L Total Protein 6.8 (6.4-8.2) g/dL Albumin 3.2 L (3.4-5.0) g/dL Globulin 3.6 H (2.0-3.5) g/dL Albumin/Globulin Ratio 0.9 L (1.3-2.8) Urine Color YELLOW Urine Appearance CLEAR Urine pH 6.0 (5.0-8.0) Ur Specific [place] 1.020 (1.001-1.035) Urine Protein 100 (NEGATIVE) mg/dL Urine Glucose (UA) NEGATIVE (NEGATIVE) mg/dL Urine Ketones NEGATIVE (NEGATIVE) mg/dL Urine Occult Blood LARGE H (NEGATIVE) Urine Nitrite NEGATIVE (NEGATIVE) Urine Bilirubin NEGATIVE (NEGATIVE) Urine Urobilinogen 1.0 (<2.0) EU/dL Ur Leukocyte Esterase LARGE (NEGATIVE) Urine RBC 0-2 (0-2/HPF) Urine WBC 1-2 (0-5/HPF) Ur Epithelial Cells RARE (NONE-FEW) Urine Bacteria 3+ H (NEGATIVE) Urinalysis Comment Departure - Departure Time of Disposition: 21:57 Disposition: DC/Tfer to SNF 03 Condition: Good Clinical Impression: Acute cystitis - Discharge Information Referrals: PCP,None [Primary Care Provider] - Forms: ED Department Discharge Additional Instructions: My general discharge The following information is given to patients seen in the emergency department who are being discharged to home. This information is to outline your options for follow-up care. We provide all patients seen in our emergency department with a follow-up referral. The need for follow-up, as well as the timing and circumstances, are variable depending upon the specifics of your emergency department visit. If you don't have a primary care physician on staff, we will provide you with a referral. We always advise you to contact your personal physician following an emergency department visit to inform them of the circumstance of the visit and for follow-up with them and/or the need for any referrals to a consulting specialist. The emergency department will also refer you to a specialist when appropriate. This referral assures that you have the opportunity for follow-up care with a specialist. All of these measure are taken in an effort to provide you with optimal care, which includes your follow-up. Under all circumstances we always encourage you to contact your private physician who remains a resource for coordinating your care. When calling for follow-up care, please make the office aware that this follow-up is from your recent emergency room visit. If for any reason you are refused follow-up, please contact the [facility] Emergency Department at and asked to speak to the emergency department charge nurse. [address] [address] Take antibiotics as prescribed for urinary tract infection. Follow-up with primary care physician. Return emergency department if new or worsening symptoms. - My Orders Last 24 Hours: My Active Orders 12/27/17 19:04 CXR [Chest 1V Frontal] [CR] Stat 12/27/17 21:00 CULTURE URINE [RM] Stat UA W/MICROSCOPIC [URIN] Stat - Assessment/Plan Last 24 Hours: My Active Orders 12/27/17 19:04 CXR [Chest 1V Frontal] [CR] Stat 12/27/17 21:00 CULTURE URINE [RM] Stat UA W/MICROSCOPIC [URIN] Stat
[2017-12-27 20:31] LABS: CHLORIDE,CL 97 mmol/L (98-107); SODIUM,NA 137 mmol/L (136-148)
[2017-12-28 04:22] VITALS: BP 102/51
--- NOTE | 2017-12-28 15:21 | CR ---
EXAM DATE: 12/27/17 PATIENT'S AGE: 77 Patient: [facility] Facility: [place], [place] Site . Site : [id number] Study: XRay Chest [id number]/28/2018 8:14:23 PM Ordering Physician: Emmanuel Whitley Final Report: Indication: Altered mental status Technique: Chest 1 view Comparison: December 11, 2017 Findings/Impression: Stable cardiomediastinal silhouette. There may be a small amount of left pleural fluid. No pneumothorax or focal infiltrate. Linear atelectasis at the medial right lung base. Postoperative changes of a median sternotomy. Embolization coils projecting over the left proximal humerus. Multani rods project over the lower thoracic spine. Dictated by Arabella Mccurdy MD @ Dec 27 2017 8:33PM (Electronic Signature) Report Signed by Proxy. [facility]
== END 2017-12-27 22:07 ==
LOC: MW.ED 18:27
DX: N30.00 Acute cystitis without hematuria (principal); E10.649 Type 1 diabetes mellitus with hypoglycemia without coma; R41.82 Altered mental status, unspecified; I10 Essential (primary) hypertension; I25.2 Old myocardial infarction; K21.9 Gastro-esophageal reflux disease without esophagitis; Z88.1 Allergy status to other antibiotic agents; Z88.0 Allergy status to penicillin; Z91.018 Allergy to other foods; Z79.82 Long term (current) use of aspirin; Z79.899 Other long term (current) drug therapy
CPT/HCPCS: 36415; 71045; 71045-26; 80053; 81001; 85025; 87086; 87186; 99283; 99285

== ENCOUNTER 2018-03-28 12:05 | Emergency (ER) | payer MEDICARE, OTHER ==
[2018-03-28] MEDS ORDERED: Pantoprazole 40 MG Vial IVPUSH ONE (12:21)
[2018-03-28] MEDS ORDERED: Ondansetron 4 MG/2 ML SDV IVPUSH ONE ×2 (12:21→15:41)
[2018-03-28] MEDS ORDERED: Sodium Chloride 0.9% 2.5 ML Syringe FLUSH PRN (12:22)
[2018-03-28] MEDS ORDERED: Sodium Chloride 0.9% 10 ML Syringe FLUSH PRN (12:22)
[2018-03-28] MEDS ORDERED: Sodium Chloride 0.9% 500 ML IV SCH (12:30)
--- NOTE | 2018-03-28 12:30 | EDM.PDOC ---
ED HPI GENERAL MEDICAL PROBLEM - General Chief Complaint: Syncope Stated Complaint: SOB Time Seen by Provider: 03/28/18 12:15 - History of Present Illness INITIAL COMMENTS - FREE TEXT/NARRATIVE: HISTORY AND PHYSICAL: History of present illness: The patient is a 78-year-old male who lives at [facility] and arrives via EMS after an episode of unresponsiveness this morning of an unknown duration. According to the report from EMS and halfway he was found and he was unresponsive and he looks somewhat cyanotic and on EMS arrival he was alert and oriented 4. Vitals were stable and the patient has no recall of these events. He says that he previously this morning did not feel ill and had no chest pain shortness of breath headache focal neurologic deficits such as weakness or tingling and only complained of some upper abdominal discomfort. In route here he had some vomiting of bile per the ambulance and here in the ED he's had intermittent nausea and dry heaves and some phlegm-like white fluid that he is vomiting up. The patient has a significant past medical history for end-stage renal disease and he is on dialysis Wednesday and Wednesday and he missed his dialysis appointment today. He also has a history of hypercholesterolemia diabetes CABG STEMI non- STEMI and he has a chronic indwelling Garcia. The patient here denies that he has any discomfort except some upper abdominal pain and some nausea. He is a code 3. She has a fistula at her his left upper arm and he is also currently denying any head neck or back pain. On my examination I noticed some small areas of swelling and abrasion on the right frontotemporal skull and scalp and he says he doesn't recall falling or hitting his head. He also says that he does not have any pain in this area or any neck pain. The patient gets around and ambulates with a walker only. Patient denies any GI problems but per his paperwork does have intermittent nausea but no abdominal surgical procedures. The patient says he had a normal bowel movement yesterday but none today. Patient also has a history per the computer of gastroparesis. It was unclear as EMS reported to us that this patient had A. fib and the patient also told nursing that he had A. fib but there is no nothing documented in the computer or on the halfway transfer forms that this is the case. Please see below for further information we have obtained from the halfway after my initial evaluation Review of systems: As per history of present illness and below otherwise all systems reviewed and negative. Past medical history: As per history of present illness and as reviewed below otherwise noncontributory. Surgical history: As per history of present illness and as reviewed below otherwise noncontributory. Social history: No reported history of drug or alcohol abuse. Family history: As per history of present illness and as reviewed below otherwise noncontributory. Physical exam: General: Well-developed well-nourished man who looks pale to me and uncomfortable in the ED but is speaking clearly and easily without breathlessness. Vital signs are noted by me HEENT: Atraumatic except for 2 small areas at the right frontal and frontotemporal scalp area that have very small abrasions and some swelling but there is no bony deformities or tenderness., normocephalic, pupils reactive, negative for conjunctival pallor or scleral icterus, mucous membranes moist, throat clear, neck supple, nontender, trachea midline. There are no midline step -offs tenderness defects of the cervical spine. Lungs: Clear to auscultation occasional coarse breath sounds but no worker breathing and some slight diminished breath sounds at the bases,, breath sounds equal bilaterally, chest nontender. Heart: S1S2, regular rhythm with some audible irregular beats appreciated and slightly tachycardic on my evaluation. I cannot appreciate a murmur and he has a large well-healed mid chest scar. Abdomen: Soft, mildly distended abdomen with very quiet bowel sounds and he has tympany on percussion. There is tenderness in the upper abdominal areas both epigastric right and left but more in the epigastrium. He has no lower abdominal tenderness. There is no rebound or guarding. Negative for masses or hepatosplenomegaly. Negative for costovertebral tenderness. Pelvis: Stable nontender. Genitourinary: Deferred. Patient has a chronic Garcia in place Rectal: Deferred. Extremities: Atraumatic, negative for cords or calf pain. Neurovascular unremarkable. There is no pedal edema or leg asymmetry. There is a fistula noted at the right upper extremity with a positive thrill. Neuro: Awake, alert, oriented. Cranial nerves II through XII unremarkable. Cerebellum unremarkable. Motor 4/5 throughout and sensory unremarkable throughout his lower extremity seems slightly weaker than his upper but it is not significantly different.. Exam nonfocal. Skin: There is no diaphoresis and no overt rashes or lesions but he overall looks very pale. Back: There are no midline step-offs tenderness defects of the cervical thoracic or lumbar spine and no visible evidence of any soft tissue injury is seen by me. Diagnostics: EKG CBC CMP amylase lipase troponin INR UA chest x-ray magnesium level H pylori CT scan of the head abdomen and pelvis right hip x-ray with pelvis Therapeutics: IV O2 monitor gentle IV fluids Zofran Protonix Reglan and Benadryl Keppra 1217: Dr. Ortega our project scheduler was contacted to take a look at the patient's EKG. I'm comparing it to one performed December 08 and the majority of it looks very similar with multiple old changes and T-wave inversions but there appears to be more ST depression in lead 1 and aVL and he will review this. The patient does denies any chest pain at this time. [id number]: Dr. Ortega our project scheduler has reviewed today's EKG and compared to the one performed in November. He does not feel that there is significant ST segment changes in those leads and thinks it looks very similar. We will continue to manage and follow the patient up with all of his testing results and involve him again as needed Patient recalls sitting at of the side of the bed and but the nurse at the halfway now called us and says that they found him on the floor and he was breathing but he looked very pale and blue and he was alert with eyes open. It is unclear exactly how long the patient was altered. This may explain the small amount of trauma I saw at the top of his head. He denied headache or neck pain to me on my evaluation Patient is now complaining to nursing of right hip pain so I'll order an x-ray 1443: I was called into the room as nursing was witnessing a generalized seizure as the patient became very stiff and unresponsive seems somewhat cyanotic and this seizure lasted a proximally 20 seconds. Afterwards the patient seemed to be responding to voice but not speaking in full sentences. The patient's airway was maintained by nursing and me and he was moved to a more emergency room. I will give him a gram of Keppra. During the course of the seizure the patient did not have a monitor on so I could not see what his rhythm was. Currently he is getting a second EKG which I will review and his CT and chest x-ray imaging will be reviewed by me. 1458: This was discussed with Dr. Williamson at [facility] ER and he has accepted the patient aerated flight has been notified and is in route. After Teri is aware of the positive troponin and likely non-STEMI that is ongoing but in light of these seizures and history of falling out of his bed we will hold off heparin or Lovenox at this time. Impression: Episodes of altered mental status/seizures etiology unclear, nondistended STEMI IL asymptomatic, dialysis patient with end-stage renal disease Definitive disposition and diagnosis as appropriate pending reevaluation and review of above. - Related Data Allergies Allergy/AdvReac Type Severity Reaction Status Date / Time cephalexin monohydrate Allergy Cannot Verified 03/28/18 13:48 [From Keflex] Remember coffee (Coffea arabica) Allergy Cannot Verified 03/28/18 13:48 [coffee] Remember Penicillins Allergy Cannot Verified 03/28/18 13:48 Remember green peppergs Allergy Nausea and Uncoded 03/28/18 13:48 Vomiting tobacco Allergy Nausea Uncoded 03/28/18 13:48 Home Meds: Home Meds Insulin Detemir [Levemir Flexpen] 3 units SQ BEDTIME 11/27/13 [History] Acetaminophen [Tylenol Extra Strength] 500 mg PO BEDTIME PRN 01/19/16 [History] Glucagon,Human Recombinant [Glucagon Emergency Kit] 1 mg IM ASDIRECTED PRN 01/18 [History] Metoclopramide [Reglan] 10 mg PO QID 01/19/16 [History] Insulin Lispro [Humalog Kwikpen U-100] 0 unit SUBCUT ASDIRECTED PRN 01/24/16 [ History] Polyethylene Glycol 3350 [MiraLAX] 17 gm PO ASDIRECTED 01/24/16 [History] Bisacodyl [Biscolax] 10 mg RC DAILY PRN 12/27/17 [History] Pravastatin [Pravachol] 40 mg PO BEDTIME 12/27/17 [History] Past Medical History HEENT History: Reports: Macular Degeneration, Retinal Detachment, Other (See Below) Other HEENT History: left vetreous hemorrhage Cardiovascular History: Reports: Bypass, Hypertension, [place] Other Cardiovascular History: Hypokalemia. Ventricular Septal Deffect. Heperlipidemia Respiratory History: Reports: None Gastrointestinal History: Reports: GERD, Other (See Below) Other Gastrointestinal History: gastroparesis Genitourinary History: Reports: Pyelonephritis, Renal Disease, Urinary Incontinence Other Genitourinary History: renal dialysis Musculoskeletal History: Reports: Back Pain, Chronic, Other (See Below) Other Musculoskeletal History: weakness Neurological History: Reports: None Psychiatric History: Reports: None Endocrine/Metabolic History: Reports: Diabetes, Type I Hematologic History: Reports: Anticoagulation Therapy Immunologic History: Reports: None Dermatologic History: Reports: None - Infectious Disease History Infectious Disease History: Reports: Chicken Pox, Measles, Mumps - Past Surgical History Cardiovascular Surgical History: Reports: Coronary Artery Bypass Social & Family History - Family History Family Medical History: Noncontributory - Caffeine Use Caffeine Use: Reports: None ED ROS GENERAL - Review of Systems Review Of Systems: ROS reveals no pertinent complaints other than HPI. ED EXAM, GENERAL - Physical Exam Exam: See Below (see dictation) Course - Vital Signs Last Recorded V/S: Last Vital Signs Temp 36.6 C 03/28/18 12:08 Pulse 102 H 03/28/18 12:08 Resp 27 H 03/28/18 12:08 BP 114/57 L 03/28/18 12:08 Pulse Ox 95 03/28/18 12:08 - Orders/Labs/Meds Orders: Active Orders 24 hr Category Date Time Status Blood Glucose Check, Bedside [RC] ONETIME Care 03/28/18 12:20 Active Cardiac Monitoring [RC] . DIRECTED Care 03/28/18 12:20 Active EKG 12 Lead [EKG Documentation Completion] [RC] STAT Care 03/28/18 12:18 Active Oxygen Therapy, ED [RC] ASDIRECTED Care 03/28/18 12:20 Active Pulse Oximetry [RC] ASDIRECTED Care 03/28/18 12:20 Active Abdomen Pelvis wo Cont [CT] Stat Exams 03/28/18 12:21 Taken Chest 1V Frontal [CR] Stat Exams 03/28/18 12:21 Taken Head wo Cont [CT] Stat Exams 03/28/18 12:22 Taken Hip Min 2V or 3V w Pelvis Rt [CR] Stat Exams 03/28/18 14:11 Taken CPK [CREATINE KINASE,CK] [CHEM] Stat Lab 03/28/18 14:51 Ordered UA W/MICROSCOPIC [URIN] Stat Lab 03/28/18 Ordered Sodium Chloride 0.9% [Normal Saline] 500 ml Med 03/28/18 12:30 Active IV STAT Sodium Chloride 0.9% [Saline Flush] Med 03/28/18 12:22 Active 10 ml FLUSH ASDIRECTED PRN Sodium Chloride 0.9% [Saline Flush] Med 03/28/18 12:22 Active 2.5 ml FLUSH ASDIRECTED PRN levETIRAcetam [Keppra] 1,000 mg Med 03/28/18 15:01 Ordered Dextrose 5% in Water 100 ml IV ONETIME Saline Lock Insert [OM.PC] Stat Oth 03/28/18 12:20 Ordered Medication Orders Sodium Chloride (Normal Saline) 500 mls @ 999 mls/hr IV STAT DEBORAH Last Admin: 03/28/18 12:54 Dose: 999 mls/hr Levetiracetam 1,000 mg/ (Dextrose/Water) 110 mls @ 440 mls/hr IV ONETIME ONE Stop: 03/28/18 15:15 Sodium Chloride (Saline Flush) 10 ml FLUSH ASDIRECTED PRN PRN Reason: Keep Vein Open Sodium Chloride (Saline Flush) 2.5 ml FLUSH ASDIRECTED PRN PRN Reason: Keep Vein Open Labs: Laboratory Tests 03/28/18 03/28/18 03/28/18 Range/Units 12:53 13:50 13:50 WBC 15.34 H (4.0-11.0) K/uL RBC 3.59 L (4.50-5.90) M/uL Hgb 10.7 L (13.0-17.0) g/dL Hct 33.1 L (38.0-50.0) % MCV 92.2 (80.0-98.0) fL MCH 29.8 (27.0-32.0) pg MCHC 32.3 (31.0-37.0) g/dL RDW Std Deviation 51.7 (28.0-62.0) fl RDW Coeff of Jadon 15 (11.0-15.0) % Plt Count 233 (150-400) K/uL MPV 10.20 (7.40-12.00) fL Neut % (Auto) 83.8 H (48.0-80.0) % Lymph % (Auto) 6.1 L (16.0-40.0) % [place] % (Auto) 9.5 (0.0-15.0) % Eos % (Auto) 0.3 (0.0-7.0) % Baso % (Auto) 0.3 (0.0-1.5) % Neut # (Auto) 12.9 H (1.4-5.7) K/uL Lymph # (Auto) 0.9 (0.6-2.4) K/uL [place] # (Auto) 1.5 H (0.0-0.8) K/uL Eos # (Auto) 0.0 (0.0-0.7) K/uL Baso # (Auto) 0.0 (0.0-0.1) K/uL Nucleated RBC % 0.0 /100WBC Nucleated RBCs # 0 K/uL INR 1.06 Lactate (0.20-2.00) mmol/L Sodium (136-148) mmol/L Potassium (3.5-5.1) mmol/L Chloride (98-107) mmol/L Carbon Dioxide (21.0-32.0) mmol/L BUN (7.0-18.0) mg/dL Creatinine (0.8-1.3) mg/dL Est Cr Clr Drug Dosing mL/min Estimated GFR (MDRD) ml/min Glucose (74-106) mg/dL POC Glucose 252 H (60-110) mg/dL Calcium (8.5-10.1) mg/dL Magnesium (1.8-2.4) mg/dL Total Bilirubin (0.2-1.0) mg/dL AST (15-37) IU/L ALT (14-63) IU/L Alkaline Phosphatase (46-116) U/L Troponin I (0.000-0.056) ng/mL Total Protein (6.4-8.2) g/dL Albumin (3.4-5.0) g/dL Globulin (2.0-3.5) g/dL Albumin/Globulin Ratio (1.3-2.8) Amylase (25-115) U/L Lipase (73-393) U/L H. pylori IgG Antibody (NEG) 03/28/18 03/28/18 03/28/18 Range/Units 13:50 13:50 14:37 WBC (4.0-11.0) K/uL RBC (4.50-5.90) M/uL Hgb (13.0-17.0) g/dL Hct (38.0-50.0) % MCV (80.0-98.0) fL MCH (27.0-32.0) pg MCHC (31.0-37.0) g/dL RDW Std Deviation (28.0-62.0) fl RDW Coeff of Jadon (11.0-15.0) % Plt Count (150-400) K/uL MPV (7.40-12.00) fL Neut % (Auto) (48.0-80.0) % Lymph % (Auto) (16.0-40.0) % [place] % (Auto) (0.0-15.0) % Eos % (Auto) (0.0-7.0) % Baso % (Auto) (0.0-1.5) % Neut # (Auto) (1.4-5.7) K/uL Lymph # (Auto) (0.6-2.4) K/uL [place] # (Auto) (0.0-0.8) K/uL Eos # (Auto) (0.0-0.7) K/uL Baso # (Auto) (0.0-0.1) K/uL Nucleated RBC % /100WBC Nucleated RBCs # K/uL INR Lactate 1.5 (0.20-2.00) mmol/L Sodium 132 L (136-148) mmol/L Potassium 3.8 (3.5-5.1) mmol/L Chloride 96 L (98-107) mmol/L Carbon Dioxide 24.1 (21.0-32.0) mmol/L BUN 84 H (7.0-18.0) mg/dL Creatinine 4.5 H (0.8-1.3) mg/dL Est Cr Clr Drug Dosing 15.09 mL/min Estimated GFR (MDRD) 12.8 ml/min Glucose 233 H (74-106) mg/dL POC Glucose (60-110) mg/dL Calcium 8.0 L (8.5-10.1) mg/dL Magnesium 2.2 (1.8-2.4) mg/dL Total Bilirubin 0.7 (0.2-1.0) mg/dL AST 60 H (15-37) IU/L ALT 32 (14-63) IU/L Alkaline Phosphatase 128 H (46-116) U/L Troponin I 6.044 H* (0.000-0.056) ng/mL Total Protein 6.3 L (6.4-8.2) g/dL Albumin 3.3 L (3.4-5.0) g/dL Globulin 3.0 (2.0-3.5) g/dL Albumin/Globulin Ratio 1.1 L (1.3-2.8) Amylase 27 (25-115) U/L Lipase 79 (73-393) U/L H. pylori IgG Antibody NEGATIVE (NEG) Meds: Medications Generic Name Dose Route Start Last Admin Trade Name Freq PRN Reason Stop Dose Admin Sodium Chloride 500 mls @ 999 mls/hr 03/28/18 12:30 03/28/18 12:54 Normal Saline IV 999 mls/hr STAT DEBORAH Administration Levetiracetam 1,000 mg/ 110 mls @ 440 mls/hr 03/28/18 15:01 Dextrose/Water IV 03/28/18 15:15 ONETIME ONE Sodium Chloride 10 ml 03/28/18 12:22 Saline Flush FLUSH ASDIRECTED PRN Keep Vein Open Sodium Chloride 2.5 ml 03/28/18 12:22 Saline Flush FLUSH ASDIRECTED PRN Keep Vein Open Discontinued Medications Generic Name Dose Route Start Last Admin Trade Name Freq PRN Reason Stop Dose Admin Diphenhydramine HCl 25 mg 03/28/18 13:25 Benadryl IVPUSH 03/28/18 13:26 ONETIME ONE Lorazepam Confirm 03/28/18 14:51 Ativan Administered 03/28/18 14:52 Dose 2 mg .ROUTE .STK-MED ONE Metoclopramide HCl 10 mg 03/28/18 13:25 Reglan IV 03/28/18 13:26 ONETIME ONE Ondansetron HCl 4 mg 03/28/18 12:21 03/28/18 12:49 Zofran IVPUSH 03/28/18 12:22 4 mg ONETIME ONE Administration Pantoprazole Sodium 80 mg 03/28/18 12:21 03/28/18 12:56 Protonix Iv IVPUSH 03/28/18 12:22 80 mg .BOLUS ONE Administration Departure - Departure Time of Disposition: 15:05 Disposition: DC/Tfer to Acute Hospital 02 Condition: Critical Clinical Impression: NSTEMI (non-ST elevated myocardial infarction), Seizure - Discharge Information Forms: ED Department Discharge - My Orders Last 24 Hours: My Active Orders 03/28/18 UA W/MICROSCOPIC [URIN] Stat 03/28/18 12:18 EKG 12 Lead [EKG Documentation Completion] [RC] STAT 03/28/18 12:20 Blood Glucose Check, Bedside [RC] ONETIME Cardiac Monitoring [RC] . DIRECTED Oxygen Therapy, ED [RC] ASDIRECTED Pulse Oximetry [RC] ASDIRECTED Saline Lock Insert [OM.PC] Stat 03/28/18 12:21 Abdomen Pelvis wo Cont [CT] Stat Chest 1V Frontal [CR] Stat 03/28/18 12:22 Head wo Cont [CT] Stat Sodium Chloride 0.9% [Saline Flush] 10 ml FLUSH ASDIRECTED PRN Sodium Chloride 0.9% [Saline Flush] 2.5 ml FLUSH ASDIRECTED PRN 03/28/18 12:30 Sodium Chloride 0.9% [Normal Saline] 500 ml IV STAT 03/28/18 14:11 Hip Min 2V or 3V w Pelvis Rt [CR] Stat 03/28/18 14:51 CPK [CREATINE KINASE,CK] [CHEM] Stat 03/28/18 15:01 levETIRAcetam [Keppra] 1,000 mg Dextrose 5% in Water 100 ml IV ONETIME - Assessment/Plan Last 24 Hours: My Active Orders 03/28/18 UA W/MICROSCOPIC [URIN] Stat 03/28/18 12:18 EKG 12 Lead [EKG Documentation Completion] [RC] STAT 03/28/18 12:20 Blood Glucose Check, Bedside [RC] ONETIME Cardiac Monitoring [RC] . DIRECTED Oxygen Therapy, ED [RC] ASDIRECTED Pulse Oximetry [RC] ASDIRECTED Saline Lock Insert [OM.PC] Stat 03/28/18 12:21 Abdomen Pelvis wo Cont [CT] Stat Chest 1V Frontal [CR] Stat 03/28/18 12:22 Head wo Cont [CT] Stat Sodium Chloride 0.9% [Saline Flush] 10 ml FLUSH ASDIRECTED PRN Sodium Chloride 0.9% [Saline Flush] 2.5 ml FLUSH ASDIRECTED PRN 03/28/18 12:30 Sodium Chloride 0.9% [Normal Saline] 500 ml IV STAT 03/28/18 14:11 Hip Min 2V or 3V w Pelvis Rt [CR] Stat 03/28/18 14:51 CPK [CREATINE KINASE,CK] [CHEM] Stat 03/28/18 15:01 levETIRAcetam [Keppra] 1,000 mg Dextrose 5% in Water 100 ml IV ONETIME
[2018-03-28] MEDS ORDERED: Metoclopramide 10 MG/2 ML SDV IV ONE (13:25)
[2018-03-28] MEDS ORDERED: diphenhydrAMINE 50 MG/ML SDV IVPUSH ONE (13:25)
[2018-03-28] MEDS ORDERED: LORazepam 2 MG/ML SDV ONE (14:51)
[2018-03-28] MEDS ORDERED: Levofloxacin/Dextrose 5%-Water 500 MG in Premix Bag 1 BAG IV ONE (15:09)
[2018-03-28] MEDS ORDERED: Ondansetron 4 MG/2 ML SDV ONE (15:41)
--- NOTE | 2018-03-28 16:31 | CR ---
EXAM DATE: 03/28/18 PATIENT'S AGE: 78 Patient: WM MTZ Facility: [place], [place] Site . Site : 1940 Study: XRay Chest [id number] 1:33:13 PM Ordering Physician: Gerard Solano Final Report: INDICATION: Syncope, shortness of breath. COMPARISON: Portable chest 12/27/2017. FINDINGS: There changes of a median sternotomy and metallic rods are again noted projecting over the thoracolumbar spine. Cardiac and mediastinal silhouettes are normal. Pulmonary vasculature is normal. There is small linear infiltrate or focal linear atelectasis in the left lower lung. The right lung is clear. IMPRESSION: Left lower lobe of the infiltrate versus linear atelectasis. Dictated by Arabella Child MD @ Mar 28 2018 1:55PM (Electronic Signature) Report Signed by Proxy. BRAULIO
--- NOTE | 2018-03-28 16:32 | CT ---
EXAM DATE: 03/28/18 PATIENT'S AGE: 78 Patient: WM MTZ Facility: [facility], [place], [place] Site . Site : 1940 Study: CT Abdomen/Pelvis [id number] 1:51:01 PM Ordering Physician: Gerard Solano Final Report: INDICATION: Abdominal pain. TECHNIQUE: Contiguous axial images were obtained from the domes of the diaphragm through the pubic symphysis. Intravenous and oral contrast were not administered. 3D rendering, including image post processing was performed on independent workstation. No comparison. FINDINGS: There are small bilateral pleural effusions with adjacent compressive atelectasis of the visualized lower lungs. The unenhanced liver and spleen are unremarkable. Gallstones are noted in the gallbladder. The unenhanced adrenal glands are unremarkable. Cortical thinning is noted of the kidneys and there is no hydronephrosis nor hydroureter. Balloon catheter is noted in the urinary bladder and there is a small amount gas in the urinary bladder. Prostate gland is enlarged. Atherosclerotic changes are noted in the abdominal aorta without aneurysmal dilatation. There is no abdominal or pelvic ascites. There is no CT evidence of appendicitis or diverticulitis. There is no intestinal obstruction. There changes of a right hip pinning and Multani rods are noted in the thoracolumbar spine. IMPRESSION: 1. Cholelithiasis. 2. Small bilateral pleural effusions. Please note that all CT scans at this facility use dose modulation, iterative reconstruction, and/or weight-based dosing when appropriate to reduce radiation dose to as low as reasonably achievable. Dictated by Arabella Child MD @ Mar 28 2018 2:09PM (Electronic Signature) Report Signed by Proxy. [facility]
--- NOTE | 2018-03-28 16:36 | CT ---
EXAM DATE: 03/28/18 PATIENT'S AGE: 78 Patient: WM MTZ Facility: [facility], [place], [place] : 1940 Study: CT Head [id number] 2:19:43 PM Ordering Physician: ANGELES Final Report: INDICATION: Pain TECHNIQUE: Head CT without contrast. COMPARISON: 08/22/2017 FINDINGS: CSF spaces: Within normal limits for age. Brain parenchyma: There are nonspecific low attenuation white matter changes consistent with chronic microvascular disease. No sign of mass, hemorrhage, or midline shift. Skull base and calvarium: The visualized paranasal sinuses and mastoid air cells demonstrate no acute or significant findings. The visualized orbits are grossly unremarkable. No skull fractures. IMPRESSION: No acute or significant findings.No change from the prior exam. Please note that all CT scans at this facility use dose modulation, iterative reconstruction, and/or weight-based dosing when appropriate to reduce radiation dose to as low as reasonably achievable. Dictated by Jose Overton MD @ Mar 28 2018 2:45PM (Electronic Signature) Report Signed by Proxy. MTDD
--- NOTE | 2018-03-28 16:45 | CR ---
EXAM DATE: 03/28/18 PATIENT'S AGE: 78 Patient: WM MTZ Facility: [place], [place] Site . Site : 1940 Study: XRay Pelvis Right hip [id number]/2018 2:51:15 PM Ordering Physician: Gerard Solano Final Report: Indication: Fall with pain Technique: Pelvis and right hip 3 views Comparison: August 22, 2017 Findings: Bones: There is hardware internal fixation of the right femoral neck. Hardware is in satisfactory position. No sign of acute fracture. Alignment is normal. Joint spaces: Moderate right hip joint osteoarthritis and mild left hip joint osteoarthritis. Soft tissues: Unremarkable. Impression: No sign of acute injury in the pelvis or right hip. Dictated by Jose Overton MD @ Mar 28 2018 2:54PM (Electronic Signature) Report Signed by Proxy. BRAULIO
[2018-03-31 09:21] VITALS: BP 124/69
== END 2018-03-28 15:40 ==
LOC: MW.ED 12:05
DX: I21.4 Non-ST elevation (NSTEMI) myocardial infarction (principal); R56.9 Unspecified convulsions; S00.01XA Abrasion of scalp, initial encounter; M25.551 Pain in right hip; I12.0 Hypertensive chronic kidney disease with stage 5 chronic kidney disease or end stage renal disease; E10.22 Type 1 diabetes mellitus with diabetic chronic kidney disease; N18.6 End stage renal disease; Z99.2 Dependence on renal dialysis; Z88.1 Allergy status to other antibiotic agents; Z88.0 Allergy status to penicillin; Z88.8 Allergy status to other drugs, medicaments and biological substances; Z79.4 Long term (current) use of insulin; Z95.1 Presence of aortocoronary bypass graft; X58.XXXA Exposure to other specified factors, initial encounter
CPT/HCPCS: 36415; 70450; 71045; 73502; 74176; 80053; 82150; 82550; 82962; 83605; 83690; 83735; 84484; 85025; 85610; 86677; 93005; 96361; 96365; 96375; 99285; C9113; J1200; J1953; J1956; J2405; J2765; J7040; J7060